=== PATIENT | male | born 1945 | race Caucasian/White ===

== ENCOUNTER 2018-06-27 12:17 | Observation (INO) | payer MEDICARE ==
[2018-06-27 12:31] VITALS: BMI 21.4
--- NOTE | 2018-06-27 12:54 | CP.PCM.HP ---
<YuryChecoRamya flores - Last Filed: 06/27/18 15:52> History of Present Illness - History of Present Illness History of Present Illness: 73-year-old male with PMH of metastatic lung cancer, DM2, hypercholeserolemia and seizures presents to [facility] for VEEG as per neurologist, Dr Petty. His anti-epileptic medication has been causing increased drowsiness and in turn he is being weaning off of phenobarbital and needs a VEEG for 24-48 hours to monitor complete wean. He also reports aphasia which occurs transiently and consists of inability to speak or write, lasts about 30 minutes. Denies numbness, tingling, syncope, CP, SOB, palpitaions, nausea, vomiting or fever. PMD: Dr Petty PMH: metastatic lung cancer, DM2, hypercholeserolemia and seizures Surg Hx: R upper lung lobectomy, brain lesion, left adrenal gland FHx: Father - or unknown cancer, mother - Allergy: NKDA Social: former smoker 3 packs/day, quit 20 years ago, denies etoh and illicit drugs Present on Admission - Present on Admission Any Indicators Present on Admission: No History of DVT/PE: No History of Uncontrolled Diabetes: No Review of Systems - Review of Systems Review of Systems: all other systems reviewed and negative unless noted in HPI Past Patient History - Past Medical History & Family History Past Medical History?: Yes - Past Social History Smoking Status: occasional - CARDIAC Hx Cardiac Disorders: Yes Hx Hypercholesterolemia: Yes - PULMONARY Hx Respiratory Disorders: Yes (LUNG CA) Hx Lung Cancer: Yes (lung resection 10 years) - NEUROLOGICAL Hx Seizures: Yes - HEENT Hx HEENT Problems: No - RENAL Hx Chronic Kidney Disease: No - ENDOCRINE/METABOLIC Hx Endocrine Disorders: Yes (DM) Hx Diabetes Mellitus Type 2: Yes Hx Hypothyroidism: Yes - HEMATOLOGICAL/ONCOLOGICAL Hx Human Immunodeficiency Virus (HIV): No - INTEGUMENTARY Hx Dermatological Problems: No - MUSCULOSKELETAL/RHEUMATOLOGICAL Hx Musculoskeletal Disorders: Yes Hx Falls: No Other/Comment: head trauma - GASTROINTESTINAL Hx Gall Bladder Disease: Yes (acute) - GENITOURINARY/GYNECOLOGICAL Hx Genitourinary Disorders: No - PSYCHIATRIC Hx Psychophysiologic Disorder: No Hx Substance Use: No - SURGICAL HISTORY Hx Surgeries: Yes Other/Comment: Adrenalectomy, brain surgery, and lung lobectomy/resection secondary to stage IV ca 10 years ago. now on remission since as per patient - ANESTHESIA Hx Anesthesia: Yes Hx Anesthesia Reactions: No Hx Malignant Hyperthermia: No Meds Allergies/Adverse Reactions: Allergies Allergy/AdvReac Type Severity Reaction Status Date / Time No Known Allergies Allergy Verified 09/10/14 16:54 Physical Exam - Constitutional Appears: Non-toxic, No Acute Distress - Head Exam Head Exam: NORMAL INSPECTION - Eye Exam Eye Exam: Normal appearance - ENT Exam ENT Exam: Mucous Membranes Moist - Respiratory Exam Respiratory Exam: NORMAL BREATHING PATTERN - Cardiovascular Exam Cardiovascular Exam: REGULAR RHYTHM - GI/Abdominal Exam GI & Abdominal Exam: Soft. absent: Tenderness - Back Exam Back exam: NORMAL INSPECTION - Neurological Exam Neurological exam: Alert, Oriented x3 - Psychiatric Exam Psychiatric exam: Normal Affect, Normal Mood - Skin Skin Exam: Dry, Intact, Normal Color, Warm Assessment & Plan - Assessment and Plan (Free Text) Assessment: 73-year-old male with PMH of metastatic lung cancer, DM2, hypercholeserolemia and seizures presents to [facility] for VEEG as per neurologist, Dr Petty. As per Dr Petty: -Past EEGS: normal. -MRI BRain: shows encephalomalacia in the right temporoparietal region Plan: Epilepsy -VEEG 24-48hrs d/t stopping phenobarbital after 2 week taper -Keppra 1000mg BID -Neuro consult, Dr Petty, input and recs appreciated DM2 -Accuchecks -Lantus 7 units at night -Insulin sliding scale -Metformin 1000mg BID Hypothyroidism -Levothyroxine 125mcg daily Hypercholesterolemia -c/w home meds, Simvistatin 40 mg daily, omega 3 GERD -c/w home meds, nexium DVT Prophylaxis -SCD <Jessi Tejeda - Last Filed: 06/27/18 19:46> Results - Vital Signs Recent Vital Signs: Last Vital Signs Temp 98.3 F 06/27/18 16:00 Pulse 92 H 06/27/18 18:00 Resp 18 06/27/18 18:00 BP 101/64 06/27/18 18:00 Pulse Ox 95 06/27/18 18:00 Attending/Attestation - Attestation I have personally seen and examined this patient.: Yes I have fully participated in the care of the patient.: Yes I have reviewed all pertinent clinical information: Yes Notes (Text): 06/27/18 19:46 Agree with findings and plan as above
--- NOTE | 2018-06-27 14:31 | CP.PCM.CON ---
History of Present Illness - History of Present Illness History of Present Illness: Video EEG admission and neurology consult. 73 yr old male who is my clinic patient, and here for Video EEG admission. Mr. Tom is a 73 yr old male who has a history of a meningioma that was resected over 25 years ago, in the right temporoparietal region, and developed epilepsy shortly thereafter, and was started on phenobarbital. He was on a very high dose, and then started to break through with seizures about a yea r ago, when he started to see me in clinic. I added keppra in the hopes of eventually stopping the phenobarbital and he is now on Keppra 750 mg bid, and has taken his last phenobarbital dose this morning. He has been tolerating keppra well. ROS: no headaches, no vomiting, no diarrhea. Pmh/pSH: as above, htn. 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 no tobacco, occasional etoh. All: nkda. On exam: AAOX3. PERRL. CN 2-12 normal. EOMI. Motor: 5/5 ul and ll bl. Sensory: intact ft, pin, pos ition sense. Gait: normal. No aphasia or apraxia. +1 dtr ul and ll bl. Toes donwgoing. No clonus. past EEGS: normal. MRI BRain: shows encephalomalacia in the right temporoparietal region Past Patient History - Past Medical History & Family History Past Medical History?: Yes - Past Social History Smoking Status: occasional - CARDIAC Hx Cardiac Disorders: Yes Hx Hypercholesterolemia: Yes - PULMONARY Hx Respiratory Disorders: Yes (LUNG CA) Hx Lung Cancer: Yes (lung resection 10 years) - NEUROLOGICAL Hx Seizures: Yes - HEENT Hx HEENT Problems: No - RENAL Hx Chronic Kidney Disease: No - ENDOCRINE/METABOLIC Hx Endocrine Disorders: Yes (DM) Hx Diabetes Mellitus Type 2: Yes Hx Hypothyroidism: Yes - HEMATOLOGICAL/ONCOLOGICAL Hx Human Immunodeficiency Virus (HIV): No - INTEGUMENTARY Hx Dermatological Problems: No - MUSCULOSKELETAL/RHEUMATOLOGICAL Hx Musculoskeletal Disorders: Yes Hx Falls: No Other/Comment: head trauma - GASTROINTESTINAL Hx Gall Bladder Disease: Yes (acute) - GENITOURINARY/GYNECOLOGICAL Hx Genitourinary Disorders: No - PSYCHIATRIC Hx Psychophysiologic Disorder: No Hx Substance Use: No - SURGICAL HISTORY Hx Surgeries: Yes Other/Comment: Adrenalectomy, brain surgery, and lung lobectomy/resection secondary to stage IV ca 10 years ago. 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 Plan : 1. Increase keppra to 1000 mg bid. 2. Phenobarbital is now discontinued and will not be restarted. 3. Video EEG for 24-[address] Petty Neurology
[2018-06-27] MEDS ORDERED: Dextrose 50% SYRINGE Inj (50 ml) IV PRN (14:53)
[2018-06-27] MEDS ORDERED: Glucagon Recombinant 1 mg Inj IM PRN (14:53)
[2018-06-27] MEDS ORDERED: D3 PO SCH (17:00)
[2018-06-27] MEDS ORDERED: [UNRECOGNIZED DRUG - OTHER] PO SCH (17:00)
[2018-06-27] MEDS ORDERED: MAG PO SCH (17:00)
[2018-06-27] MEDS ORDERED: B6 PO SCH (17:00)
[2018-06-27] MEDS ORDERED: B12 PO SCH (17:00)
[2018-06-27] MEDS ORDERED: BORON PO SCH (17:00)
[2018-06-27] MEDS ORDERED: CALCIUM PO SCH (17:00)
[2018-06-27] MEDS: Insulin Lispro (humaLOG) 100 Units/ml Inj SC SCH ×2 (17:09→23:22)
[2018-06-27] MEDS: Omega-3-Acid Ethyl Esters 1 GM Cap PO SCH (17:14)
[2018-06-27] MEDS ORDERED: Insulin Detemir 100 Units/ml Inj SC SCH (22:00)
[2018-06-28] MEDS ORDERED: Levothyroxine 50 MCG TAB PO SCH (06:30)
[2018-06-28] MEDS ORDERED: Levothyroxine 125 MCG TAB PO SCH (06:30)
[2018-06-28] MEDS: Insulin Lispro (humaLOG) 100 Units/ml Inj SC SCH ×2 (06:51→11:47)
[2018-06-28 08:22] VITALS: TEMP 97.8
[2018-06-28] MEDS ORDERED: Pantoprazole 40 mg EC Tab PO SCH (09:00)
[2018-06-28] MEDS: Omega-3-Acid Ethyl Esters 1 GM Cap PO SCH (09:32)
[2018-06-28 10:21] VITALS: BP 102/62; PULSE 91; RESP 16; O2SAT 93
--- NOTE | 2018-06-28 11:04 | CP.PCM.PN ---
Subjective - Date & Time of Evaluation Date of Evaluation: 06/28/18 Time of Evaluation: 11:00 - Subjective Subjective: 73 yr old male with long standing epilepsy, who is here for video EEG monitoring, and has a normal video eeg at this time. He is on keppra 1000 mg bid, and off of phenobarbital. ROS: no nausea, no vomiting, no diarrhea, no headache. On exam: AAOx3. PERRL. Cn 2-12normal. EOMI. Motor: 5/5 ul and ll bl. Sensory: intact to ft, pin Gait : normal. Objective - Vital Signs/Intake and Output Vital Signs (last 24 hours): Temp Pulse Resp BP Pulse Ox 97.8 F 91 H 16 102/62 93 L 06/28/18 08:00 06/28/18 10:00 06/28/18 10:00 06/28/18 10:00 06/28/18 10:00 - Medications Medications: Current Medications Aspirin (Ecotrin) 81 mg PO DAILY [facility] Last Admin: 06/28/18 09:38 Dose: 81 mg Atorvastatin Calcium (Lipitor) 20 mg PO [facility] Last Admin: 06/27/18 21:43 Dose: 20 mg Dextrose (Dextrose 50% Inj) 0 ml IV STAT PRN; Protocol PRN Reason: Hypoglycemia Protocol Dextrose (Glutose 15) 0 gm PO ONCE PRN; Protocol PRN Reason: Hypoglycemia Protocol Glucagon (Glucagen Diagnostic Kit) 0 mg IM STAT PRN; Protocol PRN Reason: Hypoglycemia Protocol Insulin Detemir (Levemir) 7 units SC [facility] Last Admin: 06/27/18 21:31 Dose: 7 units Insulin Human Lispro (Humalog) 0 units SC ACCU-CHECK [facility]; Protocol Last Admin: 06/28/18 06:51 Dose: Not Given Levetiracetam (Keppra) 1,000 mg PO BID [facility] Last Admin: 06/28/18 09:32 Dose: 1,000 mg Levothyroxine Sodium (Synthroid) 125 mcg PO DAILY@0630 [facility] Last Admin: 06/28/18 06:37 Dose: 125 mcg Metformin HCl (Glucophage) 1,000 mg PO BIDWM [facility] Last Admin: 06/28/18 09:33 Dose: 1,000 mg [id number]-[id number] Ethyl Esters (Lovaza) 1 gm PO BID [facility] Last Admin: 06/28/18 09:32 Dose: 1 gm Pantoprazole Sodium (Protonix Ec Tab) 40 mg PO DAILY [facility] Last Admin: 06/28/18 09:33 Dose: 40 mg Thiamine HCl (Vitamin B1 Tab) 100 mg PO DAILY [facility] Last Admin: 06/28/18 10:23 Dose: Not Given Assessment and Plan - Assessment and Plan (Free Text) Assessment: 73 yr old male with epilepsy who is here being tapered off phenobarbital and is on keppra 1000 mg bid. We will continue keppra 1000 mg bid, and disconnect eeg today. Plan: 1. Discharge home on Keppra 1000 mg bid 2. Discharge home with follow up with me in one week. Dr. khalil Neurology
--- NOTE | 2018-06-28 12:57 | CP.PCM.DIS ---
Provider - Provider Date of Admission: 06/27/18 12:31 Attending physician: Jessi Tejeda DO Primary care physician: Bandar Serrano MD Consults: 06/27/18 12:53 Neurology Consult Routine Comment: Consulting Provider: Kesha Petty Consulting Physician: Kesha Petty Reason for Consult: VEEG 06/27/18 16:54 Pastoral Care Referral Routine Comment: Physician Instructions: Reason For Exam: protocol Time Spent in preparation of Discharge (in minutes): 20 Diagnosis - Discharge Diagnosis (1) Epilepsy Status: Chronic Hospital Course - Lab Results Lab Results: Most Recent Lab Values POC Glucose (mg/dL) 121 mg/dL (65-110) H 06/27/18 20:34 - Hospital Course Hospital Course: 73-year-old male with PMH of metastatic lung cancer, DM2, hypercholeserolemia and seizures presents to [facility] for 24 hour VEEG as per neurologist, Dr Petty. As per neuro, VEEG normal at this time. Follow-up with Dr Petty and continue home medication regimen but with no phenobarbital. Discharge Exam - Head Exam Head Exam: NORMAL INSPECTION - ENT Exam ENT Exam: Mucous Membranes Moist - Neck Exam Neck exam: Full Rom - Respiratory Exam Respiratory Exam: NORMAL BREATHING PATTERN, UNREMARKABLE - Cardiovascular Exam Cardiovascular Exam: REGULAR RHYTHM - GI/Abdominal Exam GI & Abdominal Exam: Soft. absent: Tenderness - Extremities Exam Extremities exam: normal inspection - Neurological Exam Neurological exam: Alert, Oriented x3 - Psychiatric Exam Psychiatric exam: Normal Affect, Normal Mood - Skin Skin Exam: Dry, Intact, Normal Color, Warm Discharge Plan - Follow Up Plan Condition: GOOD Disposition: HOME/ ROUTINE Referrals: Bandar Serrano MD [Primary Care Provider] - Kesha Petty MD [Medical Doctor] -
== END 2018-06-28 15:00 | disposition home or self-care (01) ==
LOC: INTOOBSV 12:31 → H.ICU/CCU 12:31
PROVIDERS: ADMIT Student in an Organized Health Care Education/Training Program; ATTEND Student in an Organized Health Care Education/Training Program
DX: G40.909 Epilepsy, unspecified, not intractable, without status epilepticus (principal); R47.01 Aphasia; Z79.899 Other long term (current) drug therapy; Z85.118 Personal history of other malignant neoplasm of bronchus and lung; E11.9 Type 2 diabetes mellitus without complications; Z86.011 Personal history of benign neoplasm of the brain; Z87.891 Personal history of nicotine dependence; K82.9 Disease of gallbladder, unspecified; E03.9 Hypothyroidism, unspecified; E78.00 Pure hypercholesterolemia, unspecified
CPT/HCPCS: 82948; 87081; G0378